=== PATIENT | male | born 1970 | race Caucasian/White ===

== ENCOUNTER 2024-01-22 21:21 | Emergency (ER) | payer OTHER, SELFPAY ==
[2024-01-22 21:23] VITALS: BP 145/100; PULSE 79; RESP 16; TEMP 36.6; O2SAT 100; BMI 23.6
--- NOTE | 2024-01-22 22:12 | EKG12_ITS ---
Test Reason : Blood Pressure : / mmHG Vent. Rate : 060 BPM Atrial Rate : 060 BPM P-R Int : 152 ms QRS Dur : 104 ms QT Int : 406 ms P-R-T Axes : 047 014 057 degrees QTc Int : 406 ms Normal sinus rhythm Normal ECG Confirmed by CHAY MARIE, AUGUSTO ([id number]), dictionary editor TAMMI MCCARTHY ([id number]) on 01/24/2024 6:22:23 AM Referred By: SILVERIO Confirmed By:AUGUSTO CARTWRIGHT MD
[2024-01-22] MEDS: Mag Hydrox/Al Hydrox/Simeth 30 ML UDC PO (22:47)
[2024-01-22] MEDS: Ondansetron 4 MG/2 ML Vial IV (22:47)
[2024-01-22 22:57] LABS: Absolute Lymphocyte Count 1.22 X10^3/uL (0.83-4.51); Absolute Neutrophil Count 6.9 X10^3/uL (2.0-7.7); Basophil# 0.04 X10^3/uL; Basophil% 0.4 % (0-1); Eosinophil# 0.26 X10^3/uL; Eosinophils% 2.8 % (0-5); Hematocrit 43.5 % (40-54); Lymphocyte # 1.22 X10^3/ul (0.83-4.51); Lymphocyte % 13.3 % (19-41); Mean Corp Hgb Conc 34.5 g/dL (32-36); Mean Platelet Vol. 9.4 fl (6.2-12.0); Monocyte# 0.74 X10^3/uL; Monocyte% 8.1 % (0-10); NRBC Flagged by Analyzer 0 % (0-5); Neutrophil # 6.86 X10^3/uL (2.7-7.7); Neutrophil % 75.2 % (47-70); Platelet Count 292 K/mm3 (150-450); RBC Distribution Width CV 11.8 % (11.6-14.6); RBC Distribution Width SD 35.7 fl (35.1-43.9); Red Blood Count 5.18 M/mm3 (4.6-6.2); White Blood Count 9.1 K/mm3 (4.4-11.0)
[2024-01-22 23:27] LABS: ALB/GLOB Ratio 1.3 RATIO (0.9-2.4); AST(SGOT) 16 U/L (15-37); Alanine Aminotransfer ALT/SGPT 22 U/L (16-61); Albumin, Serum 4.1 g/dL (3.2-5.0); Alkaline Phosphatase 61 U/L (45-117); Anion Gap 4 (5-15); BUN 13 mg/dL (7-18); BUN/Creat Ratio 10.7 RATIO (10-20); Chloride 103 mmol/L (98-107); Creatinine, Serum 1.21 mg/dL (0.70-1.30); EST Glomerular Filtration Rate 67 mL/min (>60); Est Glom Filt Rate - Afr Amer 81 mL/min (>60); Estimated Creatinine Clearance 78.38 ml/min; Globulin 3.2 g/dL (2.2-4.2); Glucose 89 mg/dL (74-106); Lipase 41 U/L (13-75); Potassium 4.3 mmol/L (3.5-5.1); Protein, Total 7.3 g/dL (6.4-8.2); Sodium Level 138 mmol/L (136-145); Troponin-I HS 7 pg/mL (3.0-78.0)
--- NOTE | 2024-01-23 00:27 | ED.VIS.GI ---
HPI HPI - GI History of Present Illness Chief Complaint: Abd Pain Informant: patient Narrative Narrative: Patient is a 53-year-old male with history of GERD/gastritis presenting with worsening reflux symptoms. Patient had an endoscopy performed by Dr. No a week ago. He was found to have some inflammation per the patient and his stomach and was switched to omeprazole. He had previously been taking famotidine. He notes that since switching omeprazole he has had significant worsening of his reflux symptoms. This started on Sunday, 3 days ago. He has had associated nausea and is having worsening epigastric pain that is worse when he lays flat. He notes his bowel movements initially were constipated but they have become more soft. Denies any vomiting. He is also tried Maalox and Pepto-Bismol with no significant relief. Symptoms were more controlled tonight but then was helping his son and suddenly the pain became severe again which brought him to the emergency room. Denies any black or blood in his stool. Denies any chest pain. No other complaints or concerns at this time. Did speak to his doctor who recommended he restart his famotidine while he transitions to the omeprazole. Also had a prescription for sucralfate called in but does not start taking it but does have it at home. [facility] Medical History GERD (gastroesophageal reflux disease) Normal esophagogastroduodenoscopy (EGD) Home Medications famotidine 20 mg tablet 20 mg PO DAILY 01/22/24 [History Last Taken Unknown] omeprazole magnesium 20 mg tablet,delayed release (Prilosec OTC) 20 mg PO BID 01/22/24 [History Last Taken Unknown] pantoprazole 40 mg tablet,delayed release (Protonix) 40 mg PO DAILY #30 tabs 01/23/24 [Rx Last Taken Unknown] Allergy/AdvReac Type Severity Reaction Status Date / Time No Known Allergies Allergy Verified 01/22/24 21:24 Social History household members: spouse housing: house Smoking Status: Never smoker ROS ROS ED Constitutional Constitutional ED: Denies chills or fever(s) Cardiovascular Cardiovascular: Denies chest pain Respiratory/Chest Respiratory/Chest: Denies cough or dyspnea Gastrointestinal Gastrointestinal: Reports abdominal pain and nausea; Denies diarrhea, melena or vomiting Musculoskeletal Musculoskeletal: Denies arthralgias, back pain or myalgias Integumentary Denies rash Neurologic Neurologic: Denies headache(s) Hematologic/Lymphatic Hematologic/Lymphatic: Denies easy bleeding or easy bruising EXAM Physical Exam Const Vital Signs: 01/22/24 21:23 Temperature 98 F Temperature Source Temporal Pulse Rate 79 Respiratory Rate 16 Blood Pressure 145/100 H Blood Pressure Mean 115 Pulse Ox 100 Oxygen Delivery Method Room Air Positive well nourished and well developed General Appearance ED: well developed and NAD; Negative for pallor Eyes PERRL Neck supple Resp normal respiratory effort and clear to auscultation bilaterally Cardio regular rate and regular rhythm GI non-distended Auscultation: normoactive bowel sounds Palpation: soft and tender epigastric; Negative for guarding or rigid Extremity full ROM Psych mental status grossly normal and thought process normal Skin General Skin Exam: Negative for jaundice or pallor MDM MDM MDM Narrative Medical decision making narrative: Patient is evaluated for worsening epigastric pain and reflux symptoms. Given his symptoms worsened a couple days after his endoscopy have a lower suspicion for perforation or complication from endoscopy. His vital signs are largely normal. He does not have any peritoneal findings on exam. Will obtain workup looking for other causes of pain including pancreatitis as well as referred cardiac pain. Patient is also given a GI cocktail in the emergency room and a IV Zofran. Workup largely normal. CBC is normal as well as CMP and lipase. I states he troponin is 7 which is normal and his EKG does not show any acute ischemic changes (normal sinus rhythm). Patient has improvement after receiving GI cocktail. Counseled to start taking the Carafate and will prescribe him Protonix to see if this is more helpful than omeprazole for his GERD symptoms. Will follow-up outpatient with his doctor. Given return precautions. Discharged home in stable condition. Patient agreeable this plan of care. Overall patient is pretty well-appearing with a benign abdominal exam/no peritoneal signs so low suspicion for perforated ulcer, Boerhaave syndrome or Bree-Parker tear. Differential diagnosis includes perforated ulcer, exacerbation of GERD, pancreatitis, cholecystitis, referred cardiac pain Lab Data Attestation: I reviewed the patient's lab results. Labs: Laboratory Results - last 24 hr 01/22/24 22:45 WBC 9.1 RBC 5.18 Hgb 15.0 Hct 43.5 MCV 84.0 MCH 29.0 MCHC 34.5 RDW Std Deviation 35.7 RDW Coeff of Jessica 11.8 Plt Count 292 MPV 9.4 Immature Gran % (Auto) 0.200 Neut % (Auto) 75.2 H Lymph % (Auto) 13.3 L [place] % (Auto) 8.1 Eos % (Auto) 2.8 Baso % (Auto) 0.4 Absolute Neuts (auto) 6.9 Absolute Lymphs (auto) 1.22 Nucleated RBC % 0 Sodium 138 Potassium 4.3 Chloride 103 Carbon Dioxide 31.0 Anion Gap 4 L BUN 13 Creatinine 1.21 Estim Creat Clear Calc 78.38 Est GFR (MDRD) Af Amer 81 Est GFR (MDRD) Non-Af 67 BUN/Creatinine Ratio 10.7 Glucose 89 Calcium 9.0 Total Bilirubin 0.30 AST 16 ALT 22 Alkaline Phosphatase 61 Troponin I High Sens 7 Total Protein 7.3 Albumin 4.1 Globulin 3.2 Albumin/Globulin Ratio 1.3 Lipase 41 Rhythm Strip Rhythm Strip: Sinus Rhythm Rate: 60 Ectopy: None EKG Initial EKG: Attestation: I personally reviewed and interpreted this EKG as follows: Interpretation: Sinus Rhythm Comments: Normal sinus rhythm rate of 60 bpm Normal intervals Normal ST segments Prior EKG tracings: not available for review Prior: No Prior Discharge Plan Triage Chief Complaint: Abd Pain ED Provider: Mony Hicks Dx/Rx/DC Orders Clinical Impression: Gastritis, Abdominal pain, acute, epigastric Instructions: ED Epigastric Pain Uncertain Cause Prescriptions: New pantoprazole [Protonix] 40 mg tablet,delayed release (DR/EC) 40 mg PO DAILY Qty: 30 0RF No Action famotidine 20 mg tablet 20 mg PO DAILY omeprazole magnesium [Prilosec OTC] 20 mg tablet,delayed release (DR/EC) 20 mg PO BID Primary Care Provider: Dre Gutierres Referrals: Dre Gutierres MD [Primary Care Provider] - Activity Restrictions/Additional Instructions: I have prescribed you a different antacid medicine (Protonix) to take instead of the omeprazole to see if you tolerate this better. Please follow-up outpatient with your doctor and start taking the Carafate for your symptoms. Return if you have a progression or worsening your symptoms.
[2024-01-23 00:54] VITALS: BP 132/83; PULSE 74; RESP 16; TEMP 36.6; O2SAT 100
== END 2024-01-23 00:55 | disposition home or self-care (01) ==
PROVIDERS: Emergency Provider Emergency Medicine; PCP Family Medicine; Visit Provider Emergency Medicine
DX: K29.70 Gastritis, unspecified, without bleeding (principal); K21.9 Gastro-esophageal reflux disease without esophagitis; R10.13 Epigastric pain; Z79.899 Other long term (current) drug therapy
CPT/HCPCS: 80053; 83690; 84484; 85025; 93005; 99284; J2405